=== PATIENT | female | born 1970 | race Caucasian/White ===

== ENCOUNTER → 2020-10-08 | Outpatient (CLI) | payer MEDICARE, MEDICAID ==
--- NOTE | 2020-10-08 11:47 | Diagnostic Imaging Report ---
CLINICAL INDICATION: Patient has chronic low back pain with a history of previous surgery. EXAM: MRI of the lumbar spine performed without IV contrast. Sagittal T2, sagittal T1, sagittal stir, sagittal T2 fat-sat, and axial T2. COMPARISON: None. FINDINGS: There are postop changes to the lower lumbar spine with L5-S1 posterior spinal fusion hardware and interbody disk graft. There are L5 laminectomies seen. There is interbody disk graft also seen at the L4-L5 level. There is bony bridging/fusion of the L4-L5 and L5-S1 levels. There is no significant paraspinal fluid collection. The visualized portions of the distal thoracic spinal cord, conus medullaris, and cauda equina nerve roots are unremarkable. The conus medullaris tip is seen at the lower L1 vertebral body level. There are degenerative spurs involving the lumbar spine and facet arthropathy. T12-L1: Unremarkable. L1-L2: Unremarkable. L2-L3: There is moderate bilateral facet arthropathy. There is a diffuse disk bulge with disk spurs extending into the foraminal regions bilaterally and posteriorly. There is moderate right neuroforamen narrowing and [id number] left neuroforamen narrowing. There is mild central canal narrowing. L3-L4: There is a diffuse disk bulge with mild loss of disk space height. There is severe bilateral facet arthropathy and ligamentum flavum buckling. There is prominence of the posterior epidural fat. There is severe central canal stenosis, moderate right neuroforamen narrowing, and mild left neuroforamen narrowing. L4-L5: There is moderate bilateral facet arthropathy. There is no significant central canal narrowing. There is mild left neuroforamen narrowing and no significant right neuroforamen narrowing. L5-S1: There is no significant central canal narrowing. There is mild right neuroforamen narrowing and [id number] left neuroforamen narrowing. IMPRESSION: 1: There are postop changes with L5-S1 posterior lumbar interbody fusion and interbody fusion of the L4-L5 level. There are L5 laminectomies. There is solid bony bridging/fusion of the L4 through S1 level. 2: There is lumbar spine degenerative disease which is worse at the L2-L3 and L3-L4 levels which is described above. 3: There is severe central canal stenosis and moderate right neuroforamen narrowing at the L3-L4 level due to diffuse disk bulge and facet arthropathy. Dictated by: Dictated on workstation # [id number]
== END ==
PROVIDERS: ATTEND Pediatrics
DX: M47.816 Spondylosis without myelopathy or radiculopathy, lumbar region (principal); M51.26 Other intervertebral disc displacement, lumbar region; M48.062 Spinal stenosis, lumbar region with neurogenic claudication; M48.07 Spinal stenosis, lumbosacral region; M25.78 Osteophyte, vertebrae; Z98.1 Arthrodesis status
CPT/HCPCS: 72148